=== PATIENT | female | born 1985 | race Caucasian/White ===

== ENCOUNTER 2016-10-10 16:06 | Emergency (ER) | payer MEDICAID, OTHER ==
[~2016-10-10] VITALS: Ht 170.2 cm; Wt 76.0 kg
[2016-10-10 16:07] VITALS: BP 133/63; PULSE 96; RESP 16; TEMP 99.2; O2SAT 97
[2016-10-10 16:13] VITALS: BP 116/72; PULSE 79; RESP 22; TEMP 98.5; O2SAT 99
[2016-10-10] MEDS ORDERED: DIAZ5 PO (16:22)
[2016-10-10] MEDS ORDERED: ceFAZolin 2 GM PREMIX 50 ML ONE (16:22)
[2016-10-10 16:26] VITALS: RESP 18; O2SAT 99
[2016-10-10] MEDS ORDERED: ceFAZolin 2 GM PREMIX 50 ML IV ONE (16:30)
[2016-10-10] MEDS ORDERED: SODIUM CHLORIDE 0.9% FLUSH 10 ML FLUSH IVF PRN (16:30)
[2016-10-10] MEDS ORDERED: GENTAMICIN 80 MG PREMIX 100 ML IV ONE (16:30)
[2016-10-10] MEDS ORDERED: SODIUM CHLOR 0.9% 1000 ML INJ 1,000 ML IV SCH (16:30)
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
[2016-10-10] MEDS ORDERED: HYDROmorphone HCL PF 1 MG/ML VIAL IV PUSH ONE (16:45)
--- NOTE | 2016-10-10 16:48 | RADRPT ---
EXAM DATE/TIME: 10/10/2016 16:15 [facility] COMPARISON: No previous studies available for comparison. INDICATIONS : Left hand, fourth digit partial amputation. MEDICAL HISTORY : None. SURGICAL HISTORY : None. ENCOUNTER: Initial ACUITY: 1 day PAIN SCORE: 10/10 LOCATION: Left hand, fourth digit. FINDINGS: Three view examination of the left hand demonstrates amputation of the distal phalanx fourth finger. Extensive soft tissue injury and swelling. Normal fracture of the middle phalanx distally. No other f racture. CONCLUSION: Extensive soft tissue injury with amputation of the distal phalanx fourth finger. Tin y fracture along the distal middle phalanx of fourth finger. Radhames Lion MD on October 10, 2016 at 16:45 Board Certified Radiologist. This report was verified electronically.
[2016-10-10 16:53] LABS: AUTOMATED NEUTROPHIL # 7.4 TH/MM3 (1.8-7.7); BASOPHIL % 0.3 % (0.0-2.0); EOSINOPHIL % 0.3 % (0.0-4.0); HEMO FLAGS DIFF FINAL; LYMPH % 20.2 % (9.0-44.0); MEAN CELL VOLUME 92.3 FL (80.0-100.0); MEAN CORPUSCULAR HEMOGLOBIN 30.7 PG (27.0-34.0); MEAN CORPUSCULAR HGB CONC 33.3 % (32.0-36.0); MONO % 5.8 % (0.0-8.0); NEUT % 73.4 % (16.0-70.0); PLATELET COUNT 241 TH/MM3 (150-450); RED BLOOD COUNT 4.23 MIL/MM3 (4.00-5.30); RED CELL DISTRIBUTION WIDTH 12.8 % (11.6-17.2); WHITE BLOOD COUNT 10.1 TH/MM3 (4.0-11.0)
[2016-10-10 17:08] LABS: POTASSIUM 3.1 MEQ/L (3.5-5.1)
[2016-10-10] MEDS ORDERED: ONDANSETRON HCL 4 MG/2 ML VIAL IV PUSH ONE ×2 (17:15→17:45)
[2016-10-10 17:34] LABS: APTT (PATIENT) 23.7 SEC (24.3-30.1); PROTHROMBIN TIME - PATIENT 10.7 SEC (9.8-11.6)
[2016-10-10 17:55] VITALS: RESP 16
== END 2016-10-10 18:25 | disposition short-term general hospital (02) ==
LOC: NEPD 16:06
DX: S68.115A Complete traumatic metacarpophalangeal amputation of left ring finger, initial encounter (principal); W26.8XXA Contact with other sharp object(s), not elsewhere classified, initial encounter; Y92.814 Boat as the place of occurrence of the external cause; F17.210 Nicotine dependence, cigarettes, uncomplicated; F12.90 Cannabis use, unspecified, uncomplicated
CPT/HCPCS: 73130; 80048; 85025; 85610; 85730; 96365; 96367; 96375; 96376; 99291; J0690; J1170; J1580; J2405; J7030